=== PATIENT | male | born 1985 | race Caucasian/White ===

== ENCOUNTER 2019-10-29 19:39 | Emergency (ER) | payer OTHER ==
[~2019-10-29] VITALS: Ht 162.6 cm; Wt 68.0 kg
[2019-10-29] MEDS ORDERED: COZAAR 50 MG TA50 M1 PO (20:07)
[2019-10-29] MEDS ORDERED: CLONIDINE HCL0.2 M2 PO (20:07)
[2019-10-29 21:24] LABS: ABSOLUTE NEUTROPHILS 5.7 thou/uL (1.4-8.2); BASOPHILS 0.6 % (0.0-2.0); HEMATOCRIT 50.1 % (42.0-52.0); LYMPHOCYTES 33.1 % (24.0-44.0); MCH 28.9 pg (26.0-34.0); MCHC 33.9 g/dL (28.0-37.0); MCV 85.3 fL (80.0-100.0); PLATELET COUNT 208 thou/uL (150-400); POLYS 56.3 % (36.0-66.0); RBC 5.87 mil/uL (4.50-6.00); RDW 13.5 % (10.5-14.5); WBC 10.2 thou/uL (4.0-11.0)
[2019-10-29 21:35] LABS: CALCIUM 9.7 mg/dL (8.5-10.1); CREATININE 1.1 mg/dL (0.7-1.3); POTASSIUM 3.6 mmol/L (3.5-5.1)
[2019-10-29] MEDS ORDERED: NORVASC5 M1 PO (22:03)
[2019-10-29 22:26] VITALS: BP 142/86
--- NOTE | 2019-10-30 08:02 | EKG ---
[facility] [place] [address] ELECTROCARDIOGRAM REPORT Name: ALONSO KUMAR Room #: DEP [facility]#: [id number] Admission: 10/29/19 Attend Phys: Discharge: 10/29/19 Date of : 87 Report #: [id number] THIS REPORT FOR: cc: BEATRIZ - Elif family physician/PCP BEATRIZ - Elif family physician/PCP Houston Donaldson MD 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 10/30/19801 2012 11 Houston Donaldson MD, FAC /EPI
== END 2019-10-29 22:26 | disposition home or self-care (01) ==
LOC: ER 19:39
PROVIDERS: Emergency Medicine
DX: I10 Essential (primary) hypertension (principal); R55 Syncope and collapse; Z79.899 Other long term (current) drug therapy